=== PATIENT | female | born 1985 ===

== ENCOUNTER 2017-03-27 08:40 | Emergency (ER) | payer OTHER ==
[2017-03-27 08:45] VITALS: TEMP 98; O2SAT 98
[2017-03-27 08:46] VITALS: BMI 23.8
[2017-03-27] MEDS ORDERED: Sodium Chloride 0.9% 1,000 ML IV STA (09:24)
--- NOTE | 2017-03-27 09:39 | ED PDOC ---
HPI: Headache Time Seen by Provider: 03/27/17 09:10 Chief Complaint (Nursing): Headache Chief Complaint (Provider): Headache History Per: Patient History/Exam Limitations: no limitations Onset/Duration Of Symptoms: Days (x 2) Current Symptoms Are (Timing): Still Present Additional Complaint(s): Holley is a 31 y/o female who presents to the ED complaining of headache, ongoing for 2 days. She reports having similar headaches in the past, which usually go away. Took 2 tabs of Advil yesterday without relief. Headache is described as starting at right posterior neck and radiating to right eye. Denies fall/trauma, nausea, vomiting, diarrhea, chest pain, numbness, tingling, fever, and vision changes. Not the worst headache in her life. Talking on the phone when entering room. PMD: None Past Medical History Reviewed: Historical Data, Nursing Documentation, Vital Signs Vital Signs: Last Vital Signs Temp 98 F 03/27/17 09:02 Pulse 116 H 03/27/17 09:02 Resp 18 03/27/17 09:02 BP 132/87 03/27/17 09:02 Pulse Ox 98 03/27/17 09:02 - Medical History Other PMH: headaches - Surgical History Other surgeries: Right shoulder surgery - Family History Family History: States: Unknown Family Hx - Social History Current smoker - smoking cessation education provided: No Alcohol: None Drugs: Denies - Home Medications Home Medications: Ambulatory Orders Medication Instructions Recorded Naproxen [Naprosyn] 500 mg PO Q12H #20 tab 06/06/15 Cetirizine HCl [Zyrtec] 10 mg PO DAILY #30 capsule 10/31/15 Olopatadine 0.1% Opht [Patanol 5 1 drop BOTHEYES BID #1 bottle 10/31/15 Ml] Ibuprofen [Motrin] 400 mg PO Q6 #30 tab 11/04/15 Tramadol HCl [Ultram] 50 mg PO Q6 #15 tab 08/25/16 - Allergies Allergies/Adverse Reactions: Allergies Allergy/AdvReac Type Severity Reaction Status Date / Time No Known Allergies Allergy Verified 03/27/17 09:02 Review of Systems ROS Statement: Except As Marked, All Systems Reviewed And Found Negative Constitutional: Negative for: Fever Eyes: Negative for: Vision Change Cardiovascular: Negative for: Chest Pain Gastrointestinal: Negative for: Nausea, Vomiting, Diarrhea Musculoskeletal: Positive for: Neck Pain Neurological: Positive for: Headache. Negative for: Numbness, Other (Tingling) Physical Exam - Reviewed Nursing Documentation Reviewed: Yes Vital Signs Reviewed: Yes - Physical Exam Appears: Positive for: Non-toxic, No Acute Distress Head Exam: Positive for: ATRAUMATIC, NORMOCEPHALIC. Negative for: NORMAL INSPECTION (mild tender R forehead; no swelling, echymosis.) Skin: Positive for: Normal Color, Warm, Dry Eye Exam: Positive for: EOMI, Normal appearance, PERRL ENT: Positive for: Normal ENT Inspection. Negative for: Nasal Congestion, Pharyngeal Erythema, Tonsillar Exudate Neck: Positive for: Normal, Painless ROM, Supple. Negative for: Decreased ROM Cardiovascular/Chest: Positive for: Regular Rate, Rhythm. Negative for: Murmur Respiratory: Positive for: Normal Breath Sounds. Negative for: Accessory Muscle Use, Respiratory Distress Gastrointestinal/Abdominal: Positive for: Normal Exam, Soft. Negative for: Tenderness Back: Positive for: Normal Inspection. Negative for: Vertebral Tenderness Extremity: Positive for: Normal ROM. Negative for: Tenderness, Pedal Edema, Deformity Neurologic/Psych: Positive for: Alert, civil transportation engineer II-XII, Oriented. Negative for: Motor/Sensory Deficits, Aphasia, Facial Droop - Laboratory Results Result Diagrams: 03/27/17 09:50 03/27/17 09:50 Interpretation Of Abn Labs: no acute - ECG O2 Sat by Pulse Oximetry: 98 (RA) Pulse Ox Interpretation: Normal - Progress ED Course And Treament: 1302: Stable. AAOx3. Pain free. Tolerated PO. Ambulated with no issues. Fu with pcp. Medical Decision Making Medical Decision Making: Time: 09:24 Initial Impression: Mild headache Initial Plan: --BMP --Urine test --CBC --NS IV 1000 ml at 1000 mls/hr --Reglan 10 mg IV --Pending reevaluation Scribe Attestation: Documented by Stephanie Jacobo, acting as a scribe for Howard Brooks MD Provider Scribe Attestation: All medical record entries made by the Scribe were at my direction and personally dictated by me. I have reviewed the chart and agree that the record accurately reflects my personal performance of the history, physical exam, medical decision making, and the department course for this patient. I have also personally directed, reviewed, and agree with the discharge instructions and disposition. Disposition - Clinical Impression Clinical Impression: Headache - Patient ED Disposition Is Patient to be Admitted: No Counseled Patient/Family Regarding: Studies Performed, Diagnosis, Need For Followup - Disposition Referrals: formerly [facility] [Outside] - 03/28/17 Disposition: Routine/Home Disposition Time: 13:03 Condition: STABLE Additional Instructions: Return if not better in 3 days. Instructions: Acute Headache (ED) Forms: [facility] (Nepalese), [facility] ED School/Work Excuse
[2017-03-27 09:54] LABS: BASO % 0.9 % (0.0-2.0); EOS % 0.6 % (0.0-4.0); HEMOGLOBIN 11.5 g/dL (12.0-16.0); LYMPH # 1.5 K/uL (1.0-4.3); LYMPH % 31.2 % (20.0-40.0); MEAN CORPUSCULAR HEMOGLOBIN 28.3 pg (27.0-31.0); MEAN CORPUSCULAR HGB CONC 32.5 g/dL (33.0-37.0); MEAN PLATELET VOLUME 9.9 fl (7.2-11.7); MONO # 0.4 K/uL (0.0-0.8); MONO % 9.4 % (0.0-10.0); NEUT # 2.8 K/uL (1.8-7.0); NEUT % 57.9 % (50.0-75.0); NRBC % 0.1 % (0.0-0.0); RBC 4.06 Mil/uL (3.80-5.20); RED CELL DISTRIBUTION WIDTH 13.2 % (11.5-14.5); WHITE BLOOD COUNT 4.8 K/uL (4.8-10.8)
[2017-03-27 10:13] LABS: BLOOD UREA NITROGEN 15 mg/dl (7-17); CALCIUM 9.7 mg/dL (8.4-10.2); GFR AFRICAN-AMERICAN > 60; GFR NON-AFRICAN AMERICAN > 60
[2017-03-27 13:16] VITALS: BP 126/70; PULSE 76; RESP 16
== END 2017-03-27 13:15 | disposition home or self-care (01) ==
LOC: H.ER 08:40
DX: R51 Headache (principal)

== ENCOUNTER 2018-09-24 09:09 | Emergency (ER) | payer OTHER ==
[2018-09-24 09:10] VITALS: BMI 23.8
--- NOTE | 2018-09-24 10:23 | ED PDOC ---
HPI: Influenza Time Seen by Provider: 09/24/18 09:36 Chief Complaint: Flu-like Symptoms Chief Complaint (Provider): Flu-like Symptoms History Per: Patient Exam Limitations: no limitations Onset/Duration Of Symptoms: Hrs Additional complaint(s):: Patient is a 23 y/o female with no significant PMHx who presents to the ED for evaluation of a subjective fever, cough, headache, and body aches since last night. Patient admits to nausea. Patient states she took Mucinex last night at 22:00. Patient denies SOB, vomiting, and diarrhea. PCP: None Provided Past Medical History Reviewed: Historical Data, Nursing Documentation, Vital Signs Vital Signs: Last Vital Signs Temp 99.6 F 09/24/18 09:18 Pulse 94 H 09/24/18 09:18 Resp 15 09/24/18 09:18 BP 112/76 09/24/18 09:18 Pulse Ox 96 09/24/18 09:18 - Medical History PMH: No Chronic Diseases Denies: Chronic Kidney Disease - Surgical History Surgical History: No Surg Hx - Family History Family History: States: Unknown Family Hx - Social History Current smoker - smoking cessation education provided: No Ex-Smoker (has not smoked in the last 12 months): No Alcohol: None Drugs: Denies - Home Medications Home Medications: Ambulatory Orders Medication Instructions Recorded Naproxen [Naprosyn] 500 mg PO Q12H #20 tab 06/06/15 Cetirizine HCl [Zyrtec] 10 mg PO DAILY #30 capsule 10/31/15 Olopatadine 0.1% Opht [Patanol 5 1 drop BOTHEYES BID #1 bottle 10/31/15 Ml] Ibuprofen [Motrin] 400 mg PO Q6 #30 tab 11/04/15 Tramadol HCl [Ultram] 50 mg PO Q6 #15 tab 08/25/16 Ibuprofen [Motrin] 600 mg PO Q6H PRN #20 tab 09/24/18 Oseltamivir Phosphate [Tamiflu] 75 mg PO BID #9 capsule 09/24/18 - Allergies Allergies/Adverse Reactions: Allergies Allergy/AdvReac Type Severity Reaction Status Date / Time No Known Allergies Allergy Verified 09/24/18 09:28 Review of Systems ROS Statement: Except As Marked, All Systems Reviewed And Found Negative Constitutional: Positive for: Fever (subjective), Other (body aches) Respiratory: Positive for: Cough. Negative for: Shortness of Breath Gastrointestinal: Positive for: Nausea. Negative for: Vomiting, Diarrhea Neurological: Positive for: Headache Physical Exam - Reviewed Nursing Documentation Reviewed: Yes Vital Signs Reviewed: Yes - Physical Exam Appears: Positive for: Non-toxic, No Acute Distress Head Exam: Positive for: ATRAUMATIC, NORMAL INSPECTION, NORMOCEPHALIC Skin: Positive for: Normal Color, Warm, Dry Eye Exam: Positive for: EOMI, Normal appearance, PERRL ENT: Positive for: Normal ENT Inspection Neck: Positive for: Normal, Painless ROM, Supple Cardiovascular/Chest: Positive for: Regular Rate, Rhythm. Negative for: Murmur Respiratory: Positive for: Normal Breath Sounds. Negative for: Respiratory Distress Gastrointestinal/Abdominal: Positive for: Normal Exam, Soft. Negative for: Tenderness Back: Positive for: Normal Inspection. Negative for: L CVA Tenderness, R CVA Tenderness, Vertebral Tenderness Extremity: Positive for: Normal ROM. Negative for: Pedal Edema, Deformity Neurologic/Psych: Positive for: Alert, Oriented. Negative for: Motor/Sensory Deficits Medical Decision Making Medical Decision Making: Time: 1006 Impression: DDx includes but not limited to URI, viral syndrome, and flu. Plan: Urine Dipstick Motrin Tab 600 mg PO Influenza A B Scribe Attestation: Documented by Buster Lr, acting as a scribe for Wanda Medina MD Provider Scribe Attestation: All medical record entries made by the Scribe were at my direction and personally dictated by me. I have reviewed the chart and agree that the record accurately reflects my personal performance of the history, physical exam, medical decision making, and the department course for this patient. I have also personally directed, reviewed, and agree with the discharge instructions and disposition. - ECG O2 Sat by Pulse Oximetry: 96 Disposition - Clinical Impression Clinical Impression: Influenza - Disposition Referrals: [facility] [Outside] Disposition: Routine/Home Disposition Time: 11:09 Condition: STABLE Prescriptions: Ibuprofen [Motrin] 600 mg PO Q6H PRN #20 tab PRN Reason: Pain, Moderate (4-7) Oseltamivir Phosphate [Tamiflu] 75 mg PO BID #9 capsule Instructions: Flu, Adult (DC) Forms: [facility] [facility] (Ivorian), [facility] ED School/Work Excuse
[2018-09-24 12:19] VITALS: BP 107/70; PULSE 89; RESP 18; TEMP 99.1
[2018-09-28 14:51] VITALS: O2SAT 96
== END 2018-09-24 12:25 | disposition home or self-care (01) ==
LOC: H.ER 09:09
DX: J11.1 Influenza due to unidentified influenza virus with other respiratory manifestations (principal)